=== PATIENT | female | born 1955 | race Caucasian/White ===

== ENCOUNTER 2018-09-16 09:14 | Emergency (ER) | payer BC ==
[2018-09-16] MEDS ORDERED: Tetracaine 0.5% OPTH.SOL 4 ML* 1 DROP BTL BOTH EYES ONE (10:14)
[2018-09-16] MEDS ORDERED: Fluorescein Sodium TOPICAL* 1 MG TEST STRIP OPHTHALMIC ONE (10:18)
--- NOTE | 2018-09-16 10:36 | UC ---
Eye Complaint HPI - HPI Summary HPI Summary: ( 2 days ago ) pt eyes began to burn and itch. now the eyes are very red, tearing, swollen and have more burning. no actual light sensitivity but keeping eyes closed relieves some discomfort. no contact use. eyes were crusted upon waking this am. pt has some allergies but nothing like this. - History of Current Complaint Chief Complaint: UCEye Stated Complaint: BILATERAL EYE CONCERN Time Seen by Provider: 09/16/18 10:08 Hx Obtained From: Patient Onset/Duration: Gradual Onset Timing: Constant Pain Intensity: 0 Associated Signs And Symptoms: Positive: Drainage (Clear). Negative: Fever - Risk Factors Penetrating Injury Risk Factor: Negative - Allergies/Home Medications Allergies/Adverse Reactions: Allergies Allergy/AdvReac Type Severity Reaction Status Date / Time Penicillins Allergy Swelling Verified 09/16/18 09:35 Of Face,Lips,& Throat Home Medications: Home Medications Lisinopril 1 tab PO DAILY 09/16/18 [History Confirmed 09/16/18] Omeprazole CAP(NF) [PriLOSEC CAP(NF)] 2 tab PO DAILY 09/16/18 [History Confirmed 09/16/18] PMH/Surg Hx/FS Hx/Imm Hx Cardiovascular History: Hypertension GI/ History: Gastroesophageal Reflux - Surgical History Surgical History: None - Family History Known Family History: Positive: Non-Contributory - Social History Occupation: Employed Full-time Lives: With Family Alcohol Use: Occasionally Substance Use Type: None Smoking Status (MU): Light Every Day Tobacco Smoker Amount Used/How Often: 1 cigarette every other day Review of Systems All Other Systems Reviewed And Are Negative: No Constitutional: Negative: Fever, Chills Skin: Negative: Rash Eyes: Positive: Blurred Vision - due to tearing, Drainage - tears, Eye Redness. Negative: Diplopia ENT: Negative: Sore Throat, Ear Ache, Sinus Pain/Tenderness Neurological: Negative: Headache Physical Exam Triage Information Reviewed: Yes Appearance: Pain Distress Vital Signs: Initial Vital Signs Temp 99.4 F 09/16/18 09:29 Pulse 80 09/16/18 09:29 Resp 18 09/16/18 09:29 BP 143/88 09/16/18 09:29 Pulse Ox 97 09/16/18 09:29 Vital Signs Reviewed: Yes Eyes: Positive: Other: - visual acuity OD/OU=20/25. OS=20/30. no corrections used. L preauricular adenopathy. No periorbital edema or rash. Conjunctiva are deeply injected and mildly swollen. There is excess tearing from both eyes( running down cheeks). Pt prefers eyes shut to alleviate the burn. PERRL, EOMI, AC's clear. No FB's. Tetracaine placed each eye which gave some relief from the burning. Both eyes stained and no uptake seen. ENT: Positive: Pharynx normal, TMs normal. Negative: Nasal congestion, Nasal drainage Neck: Positive: Supple, Nontender, No Lymphadenopathy Respiratory: Positive: No respiratory distress Musculoskeletal: Positive: ROM Intact Neurological: Positive: Alert Psychological: Positive: Normal Response To Family, Age Appropriate Behavior Skin Exam: Normal Skin: Negative: Rashes Eye Complaint Course/Dx - Course Course Of Treatment: Call placed to Dr Farias because pt is local and would like to stay here. Dr Farias is not coconut cooker for us; however, she was kind enough to return my call. I explained pt hx and PE. She suggest I tx with neomycin polymyxin- dexamethasone drops Q1 hour today then QID. Pt to call her office Tuesday am to be seen the same day. - Differential Dx/Diagnosis Differential Diagnosis/HQI/PQRI: Other - eye redness, burning and tearing is excessive. there is preauricular adenopathy and conjunctival chemosis. there are no abrasions, ulcerations or dendrites. this is c/w a conjunctivitis and keratoconjunctivitis is of concern. Provider Diagnosis: Keratoconjunctivitis of both eyes Discharge - Sign-Out/Discharge Documenting (check all that apply): Patient Departure All imaging exams completed and their final reports reviewed: No Studies - Discharge Plan Condition: Stable Disposition: HOME Prescriptions: Neomycin/Polymy/Dex OPTH.SUSP* [Maxitrol Opth Susp 0.1%*] 1 drop BOTH EYES QID 7 Days #1 bottle Patient Education Materials: Conjunctivitis (ED) Referrals: Lyssa Farias MD [Medical Doctor] - Additional Instructions: CALL THE OFFICE OF DR FARIAS TUESDAY AM. ADVISED YOU ARE AN ER FOLLOW UP AND SHE WANTS YOU SEEN THE SAME DAY(09/18/18). YOU MAY ADVISE WE DID SPEAK TO HER. - Billing Disposition and Condition Condition: STABLE Disposition: Home
== END 2018-09-16 11:06 | disposition home or self-care (01) ==
LOC: UCCORT 09:14
DX: H16.203 Unspecified keratoconjunctivitis, bilateral (principal); Z88.0 Allergy status to penicillin; I10 Essential (primary) hypertension; K21.9 Gastro-esophageal reflux disease without esophagitis; F17.210 Nicotine dependence, cigarettes, uncomplicated
CPT/HCPCS: 99202; A9270-GY; G0463